=== PATIENT | female | born 1955 | race Caucasian/White ===

== ENCOUNTER → 2018-03-26 | Outpatient (CLI) | payer MEDICAID ==
[~2018-03-26] MED LIST: AMLO10TA4 PO; AMLO5TAB2 PO; ASCO500T12 PO; ASPI325T17 PO; CHOL100014 PO; HYDR-3237 PO; HYDR-3240 PO; INSU100I18 SQ; INSU300I SC; LOSA100T6 PO; MAGN400T22 PO; MAGN400T36 PO; MULT-34 PO; NEBI10TA3 PO; POLY17PO5 PO; SIMV40TA3 PO
== END | disposition home or self-care (01) ==
LOC: CFH 09:52
DX: I65.23 Occlusion and stenosis of bilateral carotid arteries (principal)
CPT/HCPCS: 93880

== ENCOUNTER → 2018-10-06 | Outpatient (CLI) | payer MEDICAID, OTHER ==
[~2018-10-06] MED LIST changes: +AMLO-150 PO; -AMLO5TAB2 PO; +LOSA100T14 PO; -LOSA100T6 PO; +REGADENOSON 0.4 MG/5 ML SYRINGE ONE
== END | disposition home or self-care (01) ==
LOC: CFH 08:04
PROVIDERS: ATTEND Internal Medicine Cardiovascular Disease
DX: I65.23 Occlusion and stenosis of bilateral carotid arteries (principal); I10 Essential (primary) hypertension; E11.9 Type 2 diabetes mellitus without complications; E78.5 Hyperlipidemia, unspecified
CPT/HCPCS: 78452; 93017; A9502; J2785

== ENCOUNTER → 2020-04-18 | Outpatient (CLI) | payer MEDICARE ==
[~2020-04-18] MED LIST changes: -ASCO500T12 PO; +ASCO500T93 PO; -REGADENOSON 0.4 MG/5 ML SYRINGE ONE; +SIMV40TA20 PO; -SIMV40TA3 PO
== END | disposition home or self-care (01) ==
LOC: CVU 09:24
PROVIDERS: ATTEND Internal Medicine Cardiovascular Disease
DX: I11.9 Hypertensive heart disease without heart failure (principal); E11.9 Type 2 diabetes mellitus without complications
CPT/HCPCS: 93306

== ENCOUNTER 2021-04-19 15:50 | Outpatient (CLI) | payer MEDICARE | END 2021-04-19 23:59 | disposition home or self-care (01) | LOC: CVU 15:50 | PROVIDERS: ATTEND Internal Medicine Cardiovascular Disease | DX: Z02.9 Encounter for administrative examinations, unspecified (principal) ==